=== PATIENT | male | born 1995 | race African-American/Black ===

== ENCOUNTER 2023-02-15 01:30 | Emergency (ER) | payer MEDICAID, OTHER ==
[~2023-02-15] VITALS: Ht 175.3 cm; Wt 80.0 kg
[2023-02-15 01:56] VITALS: BP 148/77; PULSE 107; RESP 18; O2SAT 98
== END 2023-02-15 05:07 | disposition left against medical advice (07) ==
LOC: ER 01:30 → EDBD 01:30 → ER 05:07
DX: R45.851 Suicidal ideations (principal); Z87.891 Personal history of nicotine dependence
CPT/HCPCS: 36415; 80320